=== PATIENT | female | born 2000 | race Caucasian/White ===

== ENCOUNTER 2018-10-25 20:30 | Emergency (ER) | payer SELFPAY ==
[~2018-10-25] VITALS: Ht 152.4 cm; Wt 81.8 kg
[2018-10-25 20:55] VITALS: Ht 152.4 cm; Wt 81.8 kg
[2018-10-25 22:58] VITALS: BP 113/66
== END 2018-10-25 23:00 | disposition home or self-care (01) ==
LOC: D.ER 20:30
DX: M25.562 Pain in left knee (principal)